=== PATIENT | male | born 1960 | race Asian ===

== ENCOUNTER 2024-11-20 07:25 | Inpatient (IN) | payer OTHER, MEDICARE ==
[~2024-11-20] VITALS: Ht 162.6 cm; Wt 90.8 kg
[~2024-11-20 07:25] MED LIST: ASPI81CH43 PO; Atorvastatin Calcium PO; CETI1CAP OR; CLOP75TA28 PO; ENAL1TAB42 PO; TAMS0.4C39 PO
--- NOTE | 2024-11-20 08:26 | ED.PDOC ---
SOB-HPI HPI Comments This is a 64 year old male presenting to the ED with chief complaint of SOB. Patient reports that he woke up this morning with SOB and associated lightheadedness and numbness to his legs. Patient relays that he took his BP medication, but no relief has been noted as of now. Patient denies any chest pain, headache, fever, chills, N/V, or cough. Chief Complaint: Shortness of Breath Time Seen by MD: 07:51 Primary Care Provider: NONE Reviewed notes: Nurses Notes, Medications, Allergies Information Source: Patient Mode of Arrival: Ambulatory Severity: Moderate Timing: Hours Duration: Since onset Context: At Rest PE Risk Factors: None History of: None Prehospital treatment: None Modifying Factors: Nothing Past Medical History PAST MEDICAL HISTORY: Angina, Anxiety, DM, High Lipids, HTN Surgical History: Denies all surgeries Family History Family History: Reviewed,noncontributory to illness Social History Smoker: Non-Smoker Alcohol: Denies ETOH Use Drugs: Denies Drug Use Lives In: Home Constitutional: denies: chills, diaphoresis, fatigue, fever, malaise, sweats, weakness, others EENTM: denies: blurred vision, double vision, ear bleeding, ear discharge, ear drainage, ear pain, ear ringing, eye pain, eye redness, hearing loss, mouth pain, mouth swelling, nasal discharge, nose bleeding, nose congestion, nose pa in, photophobia, tearing, throat pain, throat swelling, voice changes, others Respiratory: reports: shortness of breath; denies: cough, hemoptysis, orthopnea, SOB at rest, SOB with excertion, stridor, wheezing, others Cardiovascular: reports: lightheadedness; denies: chest pain, dizzy spells, diaphoresis, Dyspnea on exertion, edema, irregular heart beat, left arm pain, palpitations, PND, syncope, others Gastrointestinal: denies: abdomen distended, abdominal pain, blood streaked bowels, constipated, diarrhea, dysphagia, difficulty swallowing, hematemesis, melena, nausea, poor appetite, poor fluid intake, rectal bleeding, rectal pain, vomiting, others Genitourinary: denies: burning, dysuria, flank pain, frequency, hematuria, incontinence, penile discharge, penile sore, pain, testicle pain, testicle swelling, urgency, others Neurological: reports: others (Bilateral leg numbness); denies: dizziness, fainting, headache, left sided numbness, left sided weakness, numbness, paresthesia, pre-existing deficit, right sided numbness, right sided weakness, seizure, speech problems, tingling, tremors, weakness Musculoskeletal: denies: back pain, gout, joint pain, joint swelling, muscle pain, muscle stiffness, neck pain, others Integumetry: denies: bruises, change in color, change in hair/nails, dryness, laceration, lesions, lumps, rash, wounds, others Allergic/Immunocompromised: denies: Difficulty Healing, Frequent Infections, Hives, Itching, others Hematologic/Lymphatic: denies: anemia, blood clots, easy bleeding, easy bruising, swollen glands, others Endocrine: denies: excessive hunger, excessive sweating, excessive thirst, excessive urination, flushing, intolerance to cold, intolerance to heat, unexplained weight gain, unexplained weight loss, others Psychiatric: denies: anxiety, bipolar disorder, depression, hopeless, panic disorder, schizophrenia, sleepless, suicidal, others All Other Systems: Reviewed and Negative Physical Exam General Appearance: No Apparent Distress, Normal HEENT: Normal ENT Inspection, Pharynx Normal, TMs Normal Neck: Full Range of Motion, Non-Tender, Normal, Normal Inspection Respiratory: Chest Non-Tender, Lungs Clear, No Accessory Muscle Use, No Respiratory Distress, Normal Breath Sounds Cardiovascular: No Edema, No JVD, No Murmur, No Gallop, Normal Peripheral Pulses, Regular Rate/Rhythm Breast Exam: Deferred Gastrointestinal: No Organomegaly, Non Tender, No Pulsatile Mass, Normal Bowel Sounds, Soft Genitalia: Deferred Pelvic: Deferred Rectal: Deferred Extremities: No calf tenderness, Normal capillary refill, Normal inspection, Normal range of motion, Non-tender, No pedal edema Musculoskeletal : Apperance: Normal Neurologic: Alert, door and arrival attendant II-XII nml as Tested, No Motor Deficits, Normal Affect, Normal Mood, No Sensory Deficits Cerebellar Function: Normal Reflexes: Normal Skin: Dry, Normal Color, Warm Lymphatic: No Adenopathy Was a procedure done? Was a procedure done?: No Differential Dx Differential Diagnosis: Cardiogenic Shock, CHF, COPD, Pneumonia X-Ray, Labs, Meds, VS Vital Signs Date Time Temp Pulse Resp B/P (MAP) Pulse Ox O2 Delivery O2 Flow Rate FiO2 11/20/24 13:22 84 20 94 Room Air* 0 21 11/20/24 12:23 98.0 88 17 150/93 (112) 98 98.0 11/20/24 10:52 72 11/20/24 09:38 97.8 79 16 134/86 (102) 96 97.8 11/20/24 08:52 76 11/20/24 07:50 90 11/20/24 07:29 97.5 87 20 164/95 99 97.5 Lab Test 11/20/24 09:59 11/20/24 08:49 11/20/24 08:25 11/20/24 07:46 Range/Units Troponin I High Sensitivity 5 6 </=54 ng/L White Blood Count 7.6 4.4-10.8 10^3/uL Red Blood Count 5.65 4.5-5.90 10^6/uL Hemoglobin 17.2 13.5-17.5 g/dL Hematocrit 50.6 41.0-53.0 % Mean Corpuscular Volume 89.6 80.0-100.0 fL Mean Corpuscular Hemoglobin 30.5 28.0-32.0 pg Mean Corpuscular Hemoglobin Concent 34.1 32.0-36.0 g/dL Red Cell Distribution Width 15.7 H 11.8-14.3 % Platelet Count 299 140-450 10^3/uL Mean Platelet Volume 8.0 6.9-10.8 fL Neutrophils (%) (Auto) 64.6 37.0-80.0 % Lymphocytes (%) (Auto) 21.6 10.0-50.0 % Monocytes (%) (Auto) 8.2 0.0-12.0 % Eosinophils (%) (Auto) 4.1 0.0-7.0 % Basophils (%) (Auto) 1.5 0.0-2.0 % Neutrophils # (Auto) 4.9 1.6-8.6 10 ^3/uL Lymphocytes # (Auto) 1.6 0.4-5.4 10 ^3/uL Monocytes # (Auto) 0.6 0-1.3 10 ^3/uL Eosinophils # (Auto) 0.3 0-0.8 10 ^3/uL Basophils # (Auto) 0.1 0-0.2 10 ^3/uL Nucleated Red Blood Cells 0.1 % Sodium Level 138 136-145 mmol/L Potassium Level 4.3 3.5-5.1 mmol/L Chloride Level 105 98-107 mmol/L Carbon Dioxide Level 21 20-31 mmol/L Anion Gap 12 5-15 Blood Urea Nitrogen 10 9-23 mg/dL Creatinine 1.02 0.700-1.30 mg/dL Glomerular Filtration Rate Calc 81 >90 mL/min BUN/Creatinine Ratio 9.8 L 10.0-20.0 Serum Glucose 139 H 74-106 mg/dL Calcium Level 9.0 8.7-10.4 mg/dL B-Type Natriuretic Peptide 10.70 0-100 pg/mL Urine Color Light-yellow Yellow Urine Clarity Clear Clear Urine pH 7.0 5.0-9.0 Urine Specific [place] 1.019 1.001-1.035 Urine Protein Negative Negative Urine Ketones Negative Negative Urine Blood Negative Negative /uL Urine Nitrite Negative Negative Urine Bilirubin Negative Negative Urine Urobilinogen Normal Negative mg/dL Urine Leukocyte Esterase Negative Negative /uL Urine Glucose 4+ H Normal mg/dL POC Glucose 134 H 70-106 mg/dl [place] [id number] Ph: [phone] DIAGNOSTIC IMAGING Diagnostic Imaging Report : [id number] Signed PATIENT: ANATOLY CUNNINGHAM ACCT: [id number] UNIT: [id number] : 1960 LOC: ER ROOM / BED: / AGE / SEX: 64 / M ADM STATUS: REG ER SERVICE ORDERING PHYSICIAN: SHARA ESTES MD PROCEDURE(s): CXRP - CHEST PORTABLE REASON: sob ORDER NUMBER(s): [id number], ACCESSION NUMBER(s): [id number] EXAM: XY CHEST PORTABLE Indication: sob Technique: Single frontal view of the chest was obtained Comparison: None FINDINGS: Lines and Tubes: None Lungs: No focal consolidation. Pleura: No effusion. No pneumothorax. Cardiomediastinal contours: Unremarkable Bones: No acute osseous abnormality. IMPRESSION: No acute cardiopulmonary disease. ATED BY: SOL LIN MD DICTATED DATE/TIME: 11/20/24822 SIGNED BY: SOL LIN MD SIGNED DATE/TIME: 11/20/24822 CC: Images Reviewed?: Images reviewed and evaluated by me Time of 1ST Reevaluation: 08:51 Reevaluation 1ST: Unchanged Patient Education/Counseling: Diagnosis, Treatment Family Education/Counseling: No Family Present SEPSIS Sepsis Screen Date sepsis recognized/suspect: Nov 20, 2024 Time Sepsis recognized/suspect: 728 Recent Procedure: No On Antibiotic Therapy: No Respiratory Rate >20: No Heart Rate >90: No Temp<36 C (96.8 F) or >38.3 C: No SBP <90 or MAP <65 mmHG: No New Acute Mental Status Change: No Is the patient on CPAP, BIPAP,: No Physician Orders Chest Portable (11/20/24 07:36) Electrocardigram (11/20/24 07:36) Electrocardigram (11/20/24 08:36) Electrocardigram (11/20/24 10:36) Vital Signs Date Time Temp Pulse Resp B/P (MAP) Pulse Ox O2 Delivery O2 Flow Rate FiO2 11/20/24 13:22 84 20 94 Room Air* 0 21 11/20/24 12:23 98.0 88 17 150/93 (112) 98 98.0 11/20/24 10:52 72 11/20/24 09:38 97.8 79 16 134/86 (102) 96 97.8 11/20/24 08:52 76 11/20/24 07:50 90 11/20/24 07:29 97.5 87 20 164/95 99 97.5 Laboratory Tests Test 11/20/24 08:49 White Blood Count 7.6 10^3/uL (4.4-10.8) Departure 1 Departure Time of Disposition: 18:03 (Patient with a worsening shortness of breath, near- syncope, paresthesias. We will admit patient for further workup and expert consultation) Impression: Primary Impression: Uncontrolled hypertension Additional Impressions: CAD S/P percutaneous coronary angioplasty HTN (hypertension) Chest pain Disposition: 09 ADMITTED INPATIENT Admit to: [facility] Condition: Serious Critical Care Note Critical Care Time?: Yes Critical care comment: Acute chest pain Authorized and Performed by: Shara Estes MD Total critical care time: Approximately 39minutes Due to a high probability of clinically significant, life threatening deterioration, the patient required my highest level of preparedness to intervene emergently and I personally spent this critical care time directly and personally managing the patient. This critical care time included obtaining a history; examining the patient; pulse oximetry; ordering and review of studies; arranging urgent treatment with development of a management plan; evaluation of patient's response to treatment; frequent reassessment; and, discussions with other providers. This critical care time was performed to assess and manage the high probability of imminent, life-threatening deterioration that could result in multi-organ failure. It was exclusive of separately billable procedures and treating other patients and teaching time. Please see my other sections and the rest of the note for further information on patient assessment and treatment. Stability Stability form required: No Heart Score Heart Score: Heart Score Response (Comments) Value History N/A 0 EKG N/A 0 Age N/A 0 Risk Factors N/A 0 Troponin N/A 0 Total 0 I personally scribed for SHARA ESTES MD ([email or web address]) on 11/20/24 at 08:25. Electronically submitted by Judson Irvin ([email or web address]). I personally scribed for SHARA ESTES MD ([email or web address]) on 11/20/24 at 09:26. Electronically submitted by Judson Irvin ([email or web address]). I personally scribed for SHARA ESTES MD ([email or web address]) on 11/20/24 at 11:40. Electronically submitted by Judson Irvin ([email or web address]). SHARA ESTES MD Nov 20, 2024 08:25
--- NOTE | 2024-11-20 08:53 | ECG ---
[facility] Test Date: 2024-11-20 Test Time: 08:52:38 Pat Name: ANATOLY CUNNINGHAM Department: [facility] ED Patient ID: [facility]-[id number] Room: 0294T Gender: M Corporate Claims Examiner: BERHANE : 1960 Requested By: SHARA HECTOR Order Number: [id number] Reading MD: Sina Larson Measurements Intervals [place] Rate: 76 P: 50 TX: 189 QRS: 15 QRSD: 84 T: 32 QT: 372 QTc: 419 Interpretive Statements Sinus rhythm Inferior infarct, old Anterior infarct, old Electronically Signed On 11-23-2024 20:30:15 PDT by Sina Larson Please click the below link to view image of tracing.
[2024-11-20 09:09] LABS: Hematocrit 50.6 % (41.0-53.0); Hemoglobin 17.2 g/dL (13.5-17.5); Mean Corpuscular Hemoglobin 30.5 pg (28.0-32.0); Mean Corpuscular Volume 89.6 fL (80.0-100.0); Nucleated Red Blood Cells % 0.1 %
[2024-11-20 09:11] LABS: Urine Protein, UAD Negative (Negative)
[2024-11-20 09:13] LABS: Chloride 105 mmol/L (98-107); Potassium 4.3 mmol/L (3.5-5.1); Sodium 138 mmol/L (136-145)
[2024-11-20 09:14] LABS: Anion Gap 12 (5-15); Calcium 9.0 mg/dL (8.7-10.4); Carbon Dioxide 21 mmol/L (20-31)
[2024-11-20 09:19] LABS: BUN/Creatinine Ratio 9.8 (10.0-20.0); Blood Urea Nitrogen 10 mg/dL (9-23)
[2024-11-20 09:21] LABS: Glucose 139 mg/dL (74-106)
--- NOTE | 2024-11-20 10:54 | ECG ---
[facility] Test Date: 2024-11-20 Test Time: 10:52:46 Pat Name: ANATOLY CUNNINGHAM Department: [facility] ED Patient ID: [facility]-[id number] Room: 0294T Gender: M Welder Pipe Making: BERHANE : 1960 Requested By: SHARA HECTOR Order Number: [id number] Reading MD: Sina Larson Measurements Intervals [place] Rate: 72 P: 36 ID: [id number] QRS: 15 QRSD: 92 T: 16 QT: 379 QTc: 415 Interpretive Statements Sinus rhythm Inferior infarct, old Anterior infarct, old Electronically Signed On 11-23-2024 20:31:09 PDT by Sina Larson Please click the below link to view image of tracing.
--- NOTE | 2024-11-20 11:06 | ECG ---
[facility] Test Date: 2024-11-20 Test Time: 10:50:36 Pat Name: ANATOLY CUNNINGHAM Department: [facility] ED Patient ID: [facility]-[id number] Room: 0294T Gender: M Sander And Polisher: BERHANE : 1960 Requested By: SHARA HECTOR Order Number: [id number] Reading MD: Sina Larson Measurements Intervals [place] Rate: 73 P: 42 UT: 184 QRS: 23 QRSD: 98 T: 27 QT: 376 QTc: 415 Interpretive Statements Sinus rhythm Inferior infarct, old Anterior infarct, old Electronically Signed On 11-23-2024 20:31:00 PDT by Sina Larson Please click the below link to view image of tracing.
[2024-11-20 13:22] VITALS: PULSE 84; RESP 20; O2SAT 94
[2024-11-20] MEDS ORDERED: HYDROcodone-ACET 5/325MG TAB PO PRN (15:30)
[2024-11-20] MEDS ORDERED: MORPHINE SULFATE INJ 2 MG/ml SYRG IV PRN (15:30)
[2024-11-20] MEDS ORDERED: ONDANSETRON HCL 4 MG/2 ML VIAL IV PRN (15:30)
[2024-11-20] MEDS ORDERED: ACETAMINOPHEN 325 MG TAB PO PRN (15:30)
[2024-11-20] MEDS ORDERED: NITROGLYCERIN 0.4 MG SL TAB SL PRN (15:30)
[2024-11-20] MEDS ORDERED: DOCUSATE SOD 100 MG CAP PO PRN (15:30)
--- NOTE | 2024-11-20 15:50 | DVHHP2 ---
History of Present Illness Reason for Visit: Dizzy, numbness of bilateral legs History of Present Illness Azael Pratt is a 64-year-old male with past medial history of angina, anxiety, hypertension, hyperlipidemia, and BPH, who came to the hospital for shortness of breath, dizziness, and bilateral lower extremities numbness. Patient states he woke up this morning with shortness of breath, dizziness, and lightheadedness. He states these symptoms came on suddenly and were not there yesterday. He got up and took his blood pressure, and it was elevated. He took his morning medications and waited, but his blood pressure did not improve, it worsened. He began to have lower extremities numbness and weakness as well, prompting him to come to the hospital. Cardiovascular: HTN, Other (Angina) Psych: Anxiety Renal/: Benign prostatic enlarg. Endocrine: Diabetes Past Surgical History: Other (back surgery) Smoke: No ALCOHOL: occassional Drugs: None Lives: with Family Domestic Violence: Neg Review of Systems Constitutional: Yes: Other (light headedness); No: Fever, Chills, Sweats, Weakness, Malaise Eyes: No: Pain, Vision change, Conjunctivae inflammation, Eyelid inflammation, Other, Redness ENT: No: Ear pain, Ear discharge, Nose pain, Nose discharge, Nose congestion, Mouth pain, Mouth swelling, Throat pain, Throat swelling, Other Respiratory: No: Cough, Dry, Shortness of breath, SOB with excertion, Wheezing, Hemoptysis, Pleuritic Pain, Sputum, Wheezing, Other Cardiovascular: No: Chest Pain, Palpitations, Orthopnea, Paroxysmal Noc. Dyspnea, Edema, Lt Headedness, Other Gastrointestinal: No: Nausea, Vomiting, Abdominal Pain, Diarrhea, Constipation, Melena, Hematochezia, Other Genitourinary: No Dysuria, No Frequency, No Incontinence, No Hematuria, No Retention, No Other Musculoskeletal: No: other, neck pain, shoulder pain, arm pain, back pain, hand pain, leg pain, foot pain Skin: No: Rash, Lesions, Jaundice, Bruising, Other Neurological: Other (Dizzy); No: Weakness, Numbness, Incoordination, Change in speech, Confusion, Seizures Allergies: Coded Allergies: Penicillins (Verified Allergy, Unknown, 10/30/15) Medications Current Medications Medications Dose Ordered Sig/Christiane Route Start Time Stop Time Status Last Admin Dose Admin Acetaminophen/ Hydrocodone Bitart 1 tab Q4HP PRN PO 11/20/24 15:30 UNV Ondansetron HCl 4 mg Q4HP PRN IV 11/20/24 15:30 UNV Docusate Sodium 100 mg BIDPRN PRN PO 11/20/24 15:30 UNV Acetaminophen 650 mg Q6HP PRN PO 11/20/24 15:30 UNV Nitroglycerin 0.4 mg Q5MINP PRN SL 11/20/24 15:30 UNV Morphine Sulfate 2 mg Q30M PRN IV 11/20/24 15:30 UNV Exam Vital Signs Vital Signs Date Time Temp Pulse Resp B/P (MAP) Pulse Ox O2 Delivery O2 Flow Rate FiO2 11/20/24 13:22 84 20 94 Room Air* 0 21 11/20/24 12:23 98.0 150/93 (112) 98.0 General Appearance: Alert, Oriented X3, Cooperative, mild distress HEENT: Atraumatic, PERRLA Respiratory: Clear to auscultation, Normal air movement Cardiovascular: Regular rate, Normal S1, Normal S2, No murmurs Abdominal: Normal bowel sounds, Soft, No tenderness, No hepatospenomegaly Extremities: No clubbing, No cyanosis, No edema, Normal pulses, No tenderness/swelling Skin: No rashes, No breakdown, No significant lesion Neuro: Normal gait, Normal speech, Strength at 5/5 X4 ext, Normal tone Psych/Mental Status: Mental status NL, Mood NL Labs/Xrays Labs Test 11/20/24 09:59 11/20/24 08:49 11/20/24 08:25 11/20/24 07:46 Range/Units Troponin I High Sensitivity 5 </=54 ng/L White Blood Count 7.6 4.4-10.8 10^3/uL Red Blood Count 5.65 4.5-5.90 10^6/uL Hemoglobin 17.2 13.5-17.5 g/dL Hematocrit 50.6 41.0-53.0 % Mean Corpuscular Volume 89.6 80.0-100.0 fL Mean Corpuscular Hemoglobin 30.5 28.0-32.0 pg Mean Corpuscular Hemoglobin Concent 34.1 32.0-36.0 g/dL Red Cell Distribution Width 15.7 H 11.8-14.3 % Platelet Count 299 140-450 10^3/uL Mean Platelet Volume 8.0 6.9-10.8 fL Neutrophils (%) (Auto) 64.6 37.0-80.0 % Lymphocytes (%) (Auto) 21.6 10.0-50.0 % Monocytes (%) (Auto) 8.2 0.0-12.0 % Eosinophils (%) (Auto) 4.1 0.0-7.0 % Basophils (%) (Auto) 1.5 0.0-2.0 % Neutrophils # (Auto) 4.9 1.6-8.6 10 ^3/uL Lymphocytes # (Auto) 1.6 0.4-5.4 10 ^3/uL Monocytes # (Auto) 0.6 0-1.3 10 ^3/uL Eosinophils # (Auto) 0.3 0-0.8 10 ^3/uL Basophils # (Auto) 0.1 0-0.2 10 ^3/uL Nucleated Red Blood Cells 0.1 % Sodium Level 138 136-145 mmol/L Potassium Level 4.3 3.5-5.1 mmol/L Chloride Level 105 98-107 mmol/L Carbon Dioxide Level 21 20-31 mmol/L Anion Gap 12 5-15 Blood Urea Nitrogen 10 9-23 mg/dL Creatinine 1.02 0.700-1.30 mg/dL Glomerular Filtration Rate Calc 81 >90 mL/min BUN/Creatinine Ratio 9.8 L 10.0-20.0 Serum Glucose 139 H 74-106 mg/dL Calcium Level 9.0 8.7-10.4 mg/dL B-Type Natriuretic Peptide 10.70 0-100 pg/mL Urine Color Light-yellow Yellow Urine Clarity Clear Clear Urine pH 7.0 5.0-9.0 Urine Specific [place] 1.019 1.001-1.035 Urine Protein Negative Negative Urine Ketones Negative Negative Urine Blood Negative Negative /uL Urine Nitrite Negative Negative Urine Bilirubin Negative Negative Urine Urobilinogen Normal Negative mg/dL Urine Leukocyte Esterase Negative Negative /uL Urine Glucose 4+ H Normal mg/dL POC Glucose 134 H 70-106 mg/dl EXAM: XY CHEST PORTABLE FINDINGS: Lines and Tubes: None Lungs: No focal consolidation. Pleura: No effusion. No pneumothorax. Cardiomediastinal contours: Unremarkable Bones: No acute osseous abnormality. IMPRESSION: No acute cardiopulmonary disease. SEPSIS Sepsis Screen Date sepsis recognized/suspect: Nov 20, 2024 Time Sepsis recognized/suspect: 728 Recent Procedure: No On Antibiotic Therapy: No Respiratory Rate >20: No Heart Rate >90: No Temp<36 C (96.8 F) or >38.3 C: No SBP <90 or MAP <65 mmHG: No New Acute Mental Status Change: No Is the patient on CPAP, BIPAP,: No Physician Orders Chest Portable (11/20/24 07:36) Electrocardigram (11/20/24 07:36) Electrocardigram (11/20/24 08:36) Electrocardigram (11/20/24 10:36) Admit (11/20/24:) Code Status (11/20/24:) 2 Gm Sodium Diet (11/20/24 Dinner) Hydrocodone-Acet 5/325mg Tab ([place] 5/32 (11/20/24 15:30) Ondansetron Hcl (Zofran) (11/20/24 15:30) Docusate Sodium Capsule (Colace Capsule) (11/20/24 15:30) Complete Blood Count (11/21/24 04:00) Comprehensive Metabolic Panel (11/21/24 04:00) Echo 2d Mode Cardiac Dop (11/20/24:) Condition: Serious (11/20/24 15:29) Acetaminophen Tablet (Tylenol Tablet) (11/20/24 15:30) Nitroglycerin Sublingual (Ntrostat Subli (11/20/24 15:30) Morphine Sulfate Injection (11/20/24 15:30) Stat Ekg For Chest Pain (11/20/24:29) Notify Md Of Changes From Base (11/20/24 15:29) Powder Truck Driver For 24 Hours (11/20/24:29) Emergency Dysrhythmia Protocol (11/20/24:) Rhythm Strips Once Every Shift (11/20/24:29) Oxygen By Nasal Cannula (11/20/24:29) Aspirin Tablet (11/21/24 10:00) Enalapril Tablet (Vasotec Tablet) (11/21/24 10:00) Tamsulosin Hydrochloride (Flomax) (11/20/24 18:00) (Nf) [Atorvastatin Calcium] (11/20/24 22:00) Vital Signs Date Time Temp Pulse Resp B/P (MAP) Pulse Ox O2 Delivery O2 Flow Rate FiO2 11/20/24 13:22 84 20 94 Room Air* 0 21 11/20/24 12:23 98.0 88 17 150/93 (112) 98 98.0 11/20/24 10:52 72 11/20/24 09:38 97.8 79 16 134/86 (102) 96 97.8 11/20/24 08:52 76 11/20/24 07:50 90 Laboratory Tests Test 11/20/24 08:49 White Blood Count 7.6 10^3/uL (4.4-10.8) Assessment/Plan Assessment/Plan Assessment: Uncontrolled hypertension, BPH, Hyperlipidemia, Plan: Admit to Tele, ECHO, Consider carotid duplex, Consider cardiology consult if symptoms persist, Breathing treatments as needed, Supplemental oxygen as needed, PRN antihypertensives, Home medications reconciled, Plan discussed with: Patient My Orders Orders - KIMO ROBERTSON Procedure Category Date Status Time Admit ADMIT 11/20/24 Transmitted 15:29 Code Status CODE 11/20/24 Transmitted 15:29 2 Gm Sodium Diet DIET 11/20/24 Transmitted Dinner Hydrocodone-Acet PHA 11/20/24 Logged 5/325mg Tab ([place] 15:30 Ondansetron Hcl PHA 11/20/24 Logged (Zofran) 15:30 Docusate Sodium PHA 11/20/24 Logged Capsule (Colace 15:30 Complete Blood Count LAB 11/21/24 Verified 04:00 Comprehensive LAB 11/21/24 Verified Metabolic Panel 04:00 Echo 2d Mode Cardiac US 11/20/24 Logged DOP 15:29 Condition: Serious MANDI 11/20/24 In Process 15:29 Acetaminophen Tablet PHA 11/20/24 Logged (Tylenol Tablet) 15:30 Nitroglycerin PHA 11/20/24 Logged Sublingual (Ntrostat 15:30 Morphine Sulfate PHA 11/20/24 Logged Injection 15:30 Stat Ekg For Chest MANDI 11/20/24 In Process Pain 15:29 Notify Of Changes MANDI 11/20/24 In Process From Base 15:29 Powder Truck Driver For MANDI 11/20/24 In Process 24 Hours 15:29 Emergency Dysrhythmia MANDI 11/20/24 In Process Protocol 15:29 Rhythm Strips Once MANDI 11/20/24 In Process Every Shift 15:29 Oxygen By Nasal RT 11/20/24 Transmitted Cannula 15:29 Aspirin Tablet [facility] 11/21/24 Transmitted 10:00 Enalapril Tablet [facility] 11/21/24 Transmitted (Vasotec Tablet) 10:00 Tamsulosin PHA 11/20/24 Transmitted Hydrochloride (Flomax) 18:00 (Nf) [Atorvastatin [facility] 11/20/24 Transmitted Calcium] 22:00 Date of Service: Nov 20, 2024 Billing Provider: KIMO ROBERTSON Common Visit Codes: [id number] INP/OBS CARE (MOD) KIMO ROBERTSON Nov 20, 2024 15:50
[2024-11-20 15:59] VITALS: BP 128/79; PULSE 89; TEMP 98; O2SAT 97
[2024-11-20] MEDS ORDERED: IPRATROPIUM BROM 0.5 MG/2.5ML INH SOL NEB PRN (16:00)
[2024-11-20] MEDS ORDERED: ALBUTEROL SULF 2.5 MG/0.5ML(0.5%) NEB SOLN NEB PRN (16:00)
[2024-11-20 16:29] VITALS: O2SAT 97
[2024-11-20] MEDS ORDERED: hydrALAZINE HCL 20 MG/ML VL IV PRN (17:30)
[2024-11-20] MEDS: TAMSULOSIN HYDROCHLORIDE 0.4 MG CAP PO SCH (18:09)
[2024-11-20 20:19] VITALS: BP 123/78; PULSE 83; RESP 17; TEMP 98.3; O2SAT 95
[2024-11-20 21:00] VITALS: BP 136/84; PULSE 78; RESP 18; TEMP 97.9; O2SAT 98
[2024-11-20 22:25] VITALS: O2SAT 98
[2024-11-21] VITALS (8 sets, daily range): BP systolic 117–135; BP diastolic 76–85; PULSE 79–100; RESP 17–22; TEMP 97.1–98.3; O2SAT 92–98
[2024-11-21] MEDS: ATORVASTATIN 20 MG TAB PO SCH (00:07)
[2024-11-21] MEDS: MELATONIN 5 MG TAB PO ONE (03:47)
[2024-11-21] MEDS: CALCIUM CARB 500 MG CHEW TAB PO ONE (03:48)
[2024-11-21 07:58] LABS: Alanine Aminotransferase 27 U/L (7-40); Albumin 3.8 g/dL (3.2-4.8); Alkaline Phosphatase 73 U/L (46-116); Anion Gap 12 (5-15); BUN/Creatinine Ratio 11.3 (10.0-20.0); Bilirubin, Total 1.0 mg/dL (0.2-1.0); Blood Urea Nitrogen 12 mg/dL (9-23); Calcium 8.9 mg/dL (8.7-10.4); Chloride 106 mmol/L (98-107); Potassium 4.0 mmol/L (3.5-5.1); Sodium 138 mmol/L (136-145); Total Protein 7.2 g/dL (5.7-8.2)
[2024-11-21 08:05] LABS: Carbon Dioxide 20 mmol/L (20-31); Glucose 128 mg/dL (74-106)
[2024-11-21 09:45] LABS: Hematocrit 46.2 % (41.0-53.0); Hemoglobin 16.2 g/dL (13.5-17.5); Mean Corpuscular Hemoglobin 31.1 pg (28.0-32.0); Mean Corpuscular Volume 88.8 fL (80.0-100.0); Nucleated Red Blood Cells % 0.2 %
[2024-11-21] MEDS ORDERED: ENALAPRIL MALEATE 2.5 MG TAB PO SCH (10:00)
[2024-11-21] MEDS: ENALAPRIL MALEATE 10 MG TAB PO ONE (10:37)
--- NOTE | 2024-11-21 15:45 | DVHDS2 ---
Discharge Summary Date of Admission Nov 20, 2024 at 15:29 Date of Discharge: Nov 21, 2024 Labs/Diagnostic Data: Laboratory Results Test 11/21/24 09:09 11/21/24 07:14 11/20/24 09:59 11/20/24 08:49 White Blood Count 8.0 10^3/uL (4.4-10.8) Red Blood Count 5.20 10^6/uL (4.5-5.90) Hemoglobin 16.2 g/dL (13.5-17.5) Hematocrit 46.2 % (41.0-53.0) Mean Corpuscular Volume 88.8 fL (80.0-100.0) Mean Corpuscular Hemoglobin 31.1 pg (28.0-32.0) Mean Corpuscular Hemoglobin Concent 35.0 g/dL (32.0-36.0) Red Cell Distribution Width 15.2 % (11.8-14.3) Platelet Count 292 10^3/uL (140-450) Mean Platelet Volume 8.1 fL (6.9-10.8) Neutrophils (%) (Auto) 64.4 % (37.0-80.0) Lymphocytes (%) (Auto) 21.6 % (10.0-50.0) Monocytes (%) (Auto) 8.5 % (0.0-12.0) Eosinophils (%) (Auto) 4.1 % (0.0-7.0) Basophils (%) (Auto) 1.4 % (0.0-2.0) Neutrophils # (Auto) 5.1 10 ^3/uL (1.6-8.6) Lymphocytes # (Auto) 1.7 10 ^3/uL (0.4-5.4) Monocytes # (Auto) 0.7 10 ^3/uL (0-1.3) Eosinophils # (Auto) 0.3 10 ^3/uL (0-0.8) Basophils # (Auto) 0.1 10 ^3/uL (0-0.2) Nucleated Red Blood Cells 0.2 % Sodium Level 138 mmol/L (136-145) Potassium Level 4.0 mmol/L (3.5-5.1) Chloride Level 106 mmol/L (98-107) Carbon Dioxide Level 20 mmol/L (20-31) Anion Gap 12 (5-15) Blood Urea Nitrogen 12 mg/dL (9-23) Creatinine 1.06 mg/dL (0.700-1.30) Glomerular Filtration Rate Calc 77 mL/min (>90) BUN/Creatinine Ratio 11.3 (10.0-20.0) Serum Glucose 128 mg/dL (74-106) Calcium Level 8.9 mg/dL (8.7-10.4) Total Bilirubin 1.0 mg/dL (0.2-1.0) Aspartate Amino Transferase (AST) 23 U/L (13-40) Alanine Aminotransferase (ALT) 27 U/L (7-40) Alkaline Phosphatase 73 U/L (46-116) Total Protein 7.2 g/dL (5.7-8.2) Albumin 3.8 g/dL (3.2-4.8) Troponin I High Sensitivity 5 ng/L (</=54) B-Type Natriuretic Peptide 10.70 pg/mL (0-100) Test 11/20/24 08:25 11/20/24 07:46 Urine Color Light-yellow (Yellow) Urine Clarity Clear (Clear) Urine pH 7.0 (5.0-9.0) Urine Specific [place] 1.019 (1.001-1.035) Urine Protein Negative (Negative) Urine Ketones Negative (Negative) Urine Blood Negative /uL (Negative) Urine Nitrite Negative (Negative) Urine Bilirubin Negative (Negative) Urine Urobilinogen Normal mg/dL (Negative) Urine Leukocyte Esterase Negative /uL (Negative) Urine Glucose 4+ mg/dL (Normal) POC Glucose 134 mg/dl (70-106) Other Laboratory Tests 11/21/24 09:09 11/21/24 07:14 Brief Hx & Hospital Course: Uncontrolled hypertension, BPH, Hyperlipidemia, pt's condition, hypertensive emergency, improved unexpectedly and pt agreed to be discharged discharged to home Condition at Discharge: Fair Final Diagnosis/Problems List see above Discharge Disposition: Home Discharge Instruct/Medications Diet: Cardiac 2g Na,low cholest Activity: No Restrictions, As Tolerated Scheduled Aspirin (Asa), 81 MG PO DAILY Clopidogrel Bisulfate (Plavix), 75 MG PO DAILY Enalapril Maleate (Enalapril Maleate), 10 MG PO DAILY, (Reported) Tamsulosin Hcl (Tamsulosin Hcl), 0.4 MG PO QPM, (Reported) [Atorvastatin Calcium], 40 MG PO HS Scheduled PRN Cetirizine Hcl (All Day Allergy), 10 MG OR for FOR ALLERGIES, (Reported) Discharge Statement: "Patient was advised to return to the ER or call 911 if any headaches, dizziness, shortness of breath, chest pain, abdominal pain, bleeding, fevers, or worsening of medical condition. Patient was counseled about treatment plan, medications, possible side effects, patientverbalized understanding. All questions were answered to the best of my ability. This discharge took greater then 30 minutes in planning, reviewing documentation, counseling the patient, and discussing with other team members." ASSESSMENT ASSESSMENT Assessment Date of Service: Nov 21, 2024 Billing Provider: TAMIKA HERMOSILLO DO Common Visit Codes: 98638-VJP/OBS DISCH DAY >30min TAMIKA HERMOSILLO DO Nov 21, 2024 15:45
[2024-11-22] MEDS ORDERED: ENALAPRIL MALEATE 10 MG TAB PO SCH (10:00)
--- NOTE | 2024-11-23 18:01 | DVHSR ---
APPROVED REPORT EXAM: Two-dimensional and M-mode echocardiogram with Doppler and color Doppler. Blood Pressure: 123/73 mmHg INDICATION Uncontrolled Hypertension RISK FACTORS Obesity: Height: 5'4, Weight: 200 DIMENSIONS LVDd4.8 (3.8-5.7cm)LA (2D)4.0 (1.9-4.0cm)Aortic Root3.7 (2.0-3.7cm) LVDs3.0 (2.5-4.0cm)LA (MM) (1.9-4.0cm)Aortic Cusp Exc1.9 (1.5-2.0cm) EF (%) 60.0 (55-70%)Rt. Atrium3.4 (1.9-4.0cm)Asc. Aorta3.4 cm IVSd0.7 (0.7-1.1cm)RV (D) (1.8-2.4cm) PWd1.1 (0.7-1.1cm) Mitral Valve MitralMitral Stenosis E wave0.56m/sMV Mean GR.mmHg A wave0.88m/sMV Peak GR.mmHg E/A ratio0.62D MVAcm2 DECEL [id number] 1/2 [place] Aortic Valve Aortic ValveAortic Stenosis V11.22m/Karma Mean GR.3mmHg V21.09m/Karma Peak GR.5mmHg LVOT Diameter2.0 (1.8-2.4cm)Doppler AVA3.51cm2 Pulmonic Valve V20.84m/s Conclusion LV EF IS 65% AND IS NORMAL MILD LVH AND MILD LV DIASTOLIC DYSFUNCTION MODERATELY DILATED LEFT ATRIUM NORMAL VALVES NORMAL RV FUNCTION NO EFFUSION
--- NOTE | 2024-11-27 08:57 | ECG ---
[facility] Test Date: 2024-11-20 Test Time: 07:43:25 Pat Name: ANATOLY CUNNINGHAM Department: ED Room: 0294T B Gender: M [employer]: : [id number] Requested By: SHARA HECTOR Order Number: [id number] Reading MD: Sina Larson Measurements Intervals [place] Rate: 90 P: 63 WI: 227 QRS: 121 QRSD: 92 T: 17 QT: 342 QTc: 419 Interpretive Statements Sinus rhythm Ventricular premature complex Prolonged WI interval Anterior infarct, old Electronically Signed On 11-27-2024 9:03:58 PDT by Sina Larson Please click the below link to view image of tracing.
== END 2024-11-21 18:57 | disposition home or self-care (01) | DRG 204 ==
LOC: ER 07:25 → OVERFLOW 15:29 → TELE-WESTW 20:05
PROVIDERS: ADMIT Internal Medicine; ATTEND Internal Medicine
DX: R06.02 Shortness of breath (principal); I10 Essential (primary) hypertension; N40.0 Benign prostatic hyperplasia without lower urinary tract symptoms; E78.5 Hyperlipidemia, unspecified; E11.9 Type 2 diabetes mellitus without complications; F41.9 Anxiety disorder, unspecified; Z98.61 Coronary angioplasty status; Z88.0 Allergy status to penicillin; I25.10 Atherosclerotic heart disease of native coronary artery without angina pectoris; R42 Dizziness and giddiness; R07.9 Chest pain, unspecified; R20.0 Anesthesia of skin; Z79.899 Other long term (current) drug therapy
CPT/HCPCS: 36415; 71045; 80048; 80053; 81003; 82962; 83880; 84484; 85025; 93005; 93306; 99291; G0378